=== PATIENT | male | born 1990 | race Caucasian/White ===

== ENCOUNTER 2025-01-02 20:16 | Emergency (ER) | payer MEDICAID ==
[~2025-01-02] VITALS: Ht 177.8 cm; Wt 88.5 kg
[2025-01-02] MEDS ORDERED: KETOROLAC TROMETHAMINE INJ 30 MG/ML VIAL ONE (20:57)
[2025-01-02] MEDS ORDERED: ACETAMINOPHEN ES 500 MG TABLET ONE (20:58)
[2025-01-02] MEDS ORDERED: METHOCARBAMOL (500MG) 500 MG TABLET ONE (20:58)
[2025-01-02] MEDS: METHOCARBAMOL (750MG) 750 MG TABLET PO SCH (21:05)
[2025-01-02] MEDS: KETOROLAC TROMETHAMINE INJ 30 MG/ML VIAL IM ONE (21:06)
[2025-01-02] MEDS: ACETAMINOPHEN ES 500 MG TABLET PO ONE (21:06)
[2025-01-02] MEDS ORDERED: IBUP-1957 PO (21:26)
[2025-01-02] MEDS ORDERED: LIDO30AD10 TP (21:26)
[2025-01-02] MEDS ORDERED: ACET325C7 PO (21:26)
[2025-01-02] MEDS ORDERED: PRED20TA PO (21:26)
[2025-01-02 22:09] VITALS: BP 116/81; TEMP 98.2; O2SAT 97
== END 2025-01-02 22:11 | disposition home or self-care (01) ==
LOC: ER 20:39
DX: M54.41 Lumbago with sciatica, right side (principal); F17.200 Nicotine dependence, unspecified, uncomplicated; Z79.52 Long term (current) use of systemic steroids; Z79.899 Other long term (current) drug therapy
CPT/HCPCS: 99283; 96372; J1885